=== PATIENT | female | born 1965 | race African-American/Black ===

== ENCOUNTER 2025-06-01 01:38 | Emergency (ER) | payer MEDICAID ==
[~2025-06-01] VITALS: Ht 167.6 cm; Wt 83.0 kg
[2025-06-01 01:42] VITALS: O2SAT 99
[2025-06-01] MEDS: IBUPROFEN 600MG TABLET PO ONE (03:21)
[2025-06-01] MEDS ORDERED: NAPR-681 MT (04:06)
[2025-06-01 04:32] VITALS: BP 172/62; PULSE 75; RESP 14; TEMP 36.5; O2SAT 100
== END 2025-06-01 04:36 | disposition home or self-care (01) ==
LOC: ER 01:38
DX: S43.401A Unspecified sprain of right shoulder joint, initial encounter (principal); X58.XXXA Exposure to other specified factors, initial encounter; Y93.89 Activity, other specified; Y92.89 Other specified places as the place of occurrence of the external cause; Y99.8 Other external cause status
CPT/HCPCS: 73030; 99283